=== PATIENT | female | born 2000 | race Caucasian/White ===

== ENCOUNTER 2019-08-14 17:17 | Outpatient (CLI) | payer OTHER | END 2019-08-14 20:17 | disposition home or self-care (01) | LOC: OBT 17:17 → L-D 17:19 → OBT 20:17 | DX: O43.123 Velamentous insertion of umbilical cord, third trimester (principal); Z3A.37 37 weeks gestation of pregnancy | CPT/HCPCS: 76818 ==

== ENCOUNTER 2019-08-16 15:01 | Outpatient (CLI) | payer OTHER | END 2019-08-16 16:23 | disposition home or self-care (01) | LOC: OBT 15:01 → L-D 15:01 → OBT 16:23 | DX: O43.123 Velamentous insertion of umbilical cord, third trimester (principal); Z3A.38 38 weeks gestation of pregnancy | CPT/HCPCS: 76818 ==